=== PATIENT | female | born 2005 | race Caucasian/White ===

== ENCOUNTER 2023-02-28 18:07 | Emergency (ER) | payer OTHER ==
[~2023-02-28] VITALS: Ht 170.1 cm; Wt 68.0 kg
[2023-02-28 18:39] LABS: BASO % 0.1 % (0.0-1.0); EOS % 0.1 % (1.0-4.0); HEMATOCRIT 38.1 % (37.0-47.0); LYMPH # 1.2 10*3/uL (1.3-4.4); LYMPH % 9.9 % (27.0-41.0); MEAN CELL VOLUME 91.6 fl (81.0-99.0); MEAN CORPUSCULAR HGB 30.5 pg (27.0-31.0); MEAN CORPUSCULAR HGB CONC 33.3 g/dl (33.0-37.0); MEAN PLATELET VOLUME 9.6 fl (9.6-12.3); MONO # 1.4 10*3/uL (0.1-1.0); MONO % 11.5 % (3.0-9.0); NEUT # 9.2 10*3/uL (2.3-7.9); NEUT % 78.1 % (47.0-73.0); PLATELET COUNT AUTOMATED 207 10*3/uL (130-400); RED BLOOD COUNT 4.16 10*6/uL (4.10-5.10); RED CELL DISTRI WIDTH 12.2 % (0-14.5); WHITE BLOOD COUNT 11.8 10*3/uL (4.8-10.8)
[2023-02-28 19:14] LABS: BILIRUBIN Negative (Negative); BLOOD 2+ (Negative); CLARITY Cloudy (Clear); COLOR Yellow (Yellow); GLUCOSE Negative (Negative); KETONE Negative (Negative); LEUKO ESTERASE 1+ (Negative); NITRITE Positive (Negative); PH 5.5 (4.5-8.0)
[2023-02-28 19:16] LABS: ALKALINE PHOSPHATASE 68 U/L (46-116); BUN 9 mg/dl (9-23); CHLORIDE 105 mmol/L (98-107); POTASSIUM 3.8 mmol/L (3.4-5.1); SGPT/ALT 20 U/L (10-49); TOTAL PROTEIN 7.1 gm/dL (6.0-8.0)
[2023-02-28 19:46] LABS: BACTERIA 3+
[2023-02-28 19:47] LABS: WBC 16-20 wbc/hpf (0-5)
[2023-02-28] MEDS ORDERED: CEPHALEXIN500 M1 PO (19:57)
== END 2023-02-28 21:29 | disposition home or self-care (01) ==
LOC: ED 18:07
PROVIDERS: Student in an Organized Health Care Education/Training Program
DX: N30.00 Acute cystitis without hematuria (principal)